=== PATIENT | female | born 1970 | race American Indian/Alaskan Native ===

== ENCOUNTER 2019-03-29 19:20 | Emergency (ER) | payer MEDICAID ==
[2019-03-29] MEDS ORDERED: HYDROmorphone 1 MG/1 ML INJ ONE (20:04)
--- NOTE | 2019-03-29 20:05 | Emergency Department Report ---
Upper Extremity - HPI Chief Complaint: Extremity Injury, Upper Stated Complaint: WRIST PAIN Time Seen by Provider: 03/29/19 20:00 Upper Extremity: Left Wrist Occurred When: Today Mechanism: Fall Severity: severe Symptoms: Yes Pain with Movement, Yes Deformity, Yes Limited Range of Movement, Yes Swelling, No Numbness, No Weakness, No Bruising/Ecchymosis, No Laceration or Abrasion Other History: Patient is a 49-year-old female that presents emergency room with complaints of left wrist pain. Patient states she fell walking and tried to brace her fall and fell with an outstretched hand onto the ground. Patient states her pain in her left wrist is a 10 out of 10. Patient states it is worse with movement better with rest. Patient states that EMS placed a Bryan bandage on there. Patient states that her wrist is deformed. Patient states there is swelling to the area. Patient states the pain is better with rest and worse with movement and palpation. ED Review of Systems ROS: Stated complaint: WRIST PAIN Other details as noted in HPI Constitutional: denies: chills, fever Eyes: denies: eye pain, eye discharge, vision change ENT: denies: ear pain, throat pain Respiratory: denies: cough, shortness of breath, wheezing Cardiovascular: denies: chest pain, palpitations Endocrine: no symptoms reported Gastrointestinal: denies: abdominal pain, nausea, diarrhea Genitourinary: denies: urgency, dysuria, discharge Musculoskeletal: denies: back pain, joint swelling, arthralgia Skin: denies: rash, lesions Neurological: denies: headache, weakness, paresthesias Psychiatric: denies: anxiety, depression Hematological/Lymphatic: denies: easy bleeding, easy bruising ED Past Medical Hx - Past Medical History Previous Medical History?: No - Surgical History Past Surgical History?: No - Family History Family history: no significant - Social History Smoking Status: Current Every Day Smoker Substance Use Type: None - Medications Home Medications: Home Medications Medication Instructions Recorded Confirmed Last Taken Type HYDROcodone/APAP 7.5-325 [[place] 1 each PO Q6HR PRN #12 tablet 03/29/19 Unknown Rx 7.5/325] Upper Extremity Exam - Exam General: Vital signs noted. No distress. Alert and acting appropriately. The patient appeared well nourished and normally developed. Vital signs as documented. Head exam is unremarkable. No scleral icterus or corneal arcus noted. Neck is without jugular venous distension, thyromegaly, or carotid bruits. Carotid upstrokes are brisk bilaterally. Lungs are clear to auscultation and percussion. Cardiac exam reveals the Rhythm is regular. First and second heart sounds nor mal. No murmurs, rubs or gallops. Abdominal exam reveals normal bowel sounds, no masses, no organomegaly and no aortic enlargement. Head and Torso: No HEENT Abnormality, No Neck Tenderness, No Chest/Lungs Abnormality, No Abdominal Tenderness, No Back Tenderness Shoulder Exam: Yes Normal Range of Motion in Shoulder, No Shoulder Tenderness, No Clavicle Tenderness, No Shoulder Deformity, No AC Joint Tenderness Arm Exam: No Arm/Humerus Tenderness, No Arm Deformity Elbow: No Elbow Tenderness, No Normal Range of Motion in Elbow, No Elbow Deformity Forearm: No Forearm Tenderness, No Forearm Deformity, No Pain with Pronation, No Pain with Supination Wrist: Yes Wrist Tenderness, Yes Wrist Deformity, No Normal ROM in Wrist, No Pain with Axial Thumb Compression Hand: Yes Normal ROM in Digit(s), No Hand Tenderness, No Hand Deformity, No Digit Tenderness, No Digit(s) Deformity, No Tendon Dysfunction CMS Exam: No Broken Skin, No Normal Distal Pulses, No Normal Capillary Refill, No Normal Distal Sensation ED Course - Reevaluation(s) Reevaluation #1: Discussed all results with patient. Discussed plan of care patient. Patient is stable for discharge. Patient was discharged home. Patient given discharge instructions. Patient voiced understanding of discharge instructions. Patient will have a splint placed to the left extremity. 03/29/19 21:15 Reevaluation #2: Splint placed and neurovascularly intact. See procedure note. 03/29/19 21:35 - Orthopedic Splinting/Casting Injury #1 Side: left Upper Extremity Injury Location: wrist Upper Extremity Immobilizer: sugartong splint Additional Comments: Patient had a splint placed to the left forearm and wrist. Neurovascularly intact. Cap refill Normal ED Medical Decision Making - Radiology Data Radiology results: report reviewed, image reviewed interpreted by me: Distal radial fracture of left wrist. LEFT WRIST 3 VIEWS PORTABLE 2000 INDICATION: Fall COMPARISON: None available. FINDINGS: Views are mildly underpenetrated. Impacted fracture of the distal radial metaphysis is noted. Lateral view is obliqued but no definite angulation is seen. There is mild dorsal and lateral displacement. No dislocation is obvious. Radiocarpal moderate arthritic changes are seen. A ovoid bony density is seen near the tip of the ulnar styloid but appears corticated and may be an old fracture fragment. Carpal arthritic changes are noted. - Medical Decision Making Patient is a 49-year-old female that presents emergency room with complaints of left wrist pain. Patient had x-rays done and shows a radial fracture. Patient was placed in a sugar tong EMS blade. Patient tolerated splinting well. Patient referred to a orthopedist for follow-up care. Patient given pain medications in the ER. Patient also discharged home with pain medications. - Differential Diagnosis fracture, sprain, contusion, strain, wrist pain, forearm pain Critical care attestation.: If time is entered above; I have spent that time in minutes in the direct care of this critically ill patient, excluding procedure time. ED Disposition Clinical Impression: Wrist pain, left Radial head fracture, closed Qualifiers: Encounter type: initial encounter Fracture alignment: nondisplaced Laterality: left Qualified Code(s): S52.125A - Nondisplaced fracture of head of left radius, initial encounter for closed fracture Disposition: - TO HOME OR SELFCARE Is pt being admited?: No Does the pt Need Aspirin: No Condition: Stable Instructions: Wrist Fracture in Adults (ED) Additional Instructions: Patient to follow up with primary care in 2-3 days. Patient to follow-up with orthopedist in 2-3 days. Patient to return to ER if condition worsens, changes or new symptoms arise. Patient to take Tylenol or ibuprofen when necessary for pain. Patient to rest. Patient to elevate limb. Patient to keep splint on until cleared by orthopedist. Prescriptions: HYDROcodone/APAP 7.5-325 [[place] 7.5/325] 1 each PO Q6HR PRN #12 tablet PRN Reason: Pain Referrals: PRIMARY MD BARBI [Primary Care Provider] - 2-3 Days BECK CUEVA MD [Staff Physician] - 2-3 Days Time of Disposition: 21:23
[2019-03-29] MEDS ORDERED: HYDROmorphone 1 MG/1 ML INJ IV ONE ×2 (20:10→21:22)
--- NOTE | 2019-03-29 21:06 | XRay Report ---
LEFT FOREARM 2 VIEWS PORTABLE 2005 INDICATION: Fall COMPARISON: None available. FINDINGS: Forearm is pronated. Views are mildly underpenetrated. Distal radial fracture is seen as described below. No proximal fractures or dislocations are noted. LEFT WRIST 3 VIEWS PORTABLE 2000 INDICATION: Fall COMPARISON: None available. FINDINGS: Views are mildly underpenetrated. Impacted fracture of the distal radial metaphysis is note d. Lateral view is obliqued but no definite angulation is seen. There is mild dorsal and lateral disp lacement. No dislocation is obvious. Radiocarpal moderate arthritic changes are seen. A ovoid bony de nsity is seen near the tip of the ulnar styloid but appears corticated and may be an old fracture fra gment. Carpal arthritic changes are noted. Signer Name: Fidel Harry MD Signed: 03/29/2019 9:02 PM Workstation Name: [id number]
== END 2019-03-29 22:50 | disposition home or self-care (01) ==
LOC: ED 19:20
DX: S52.125A Nondisplaced fracture of head of left radius, initial encounter for closed fracture (principal); M25.532 Pain in left wrist; F17.200 Nicotine dependence, unspecified, uncomplicated; Z79.899 Other long term (current) drug therapy; W19.XXXA Unspecified fall, initial encounter; Y93.89 Activity, other specified; Y92.89 Other specified places as the place of occurrence of the external cause; Y99.8 Other external cause status
CPT/HCPCS: 29125; 73090; 73110; 96374; 96376; 99284; J1170

== ENCOUNTER 2019-05-15 09:54 | Outpatient (CLI) | payer MEDICAID ==
--- NOTE | 2019-05-15 12:04 | XRay Report ---
LEFT WRIST 3 VIEWS INDICATION / CLINICAL INFORMATION: S62.92XA UNSPECIFIED FRACTURE OF LEFT WRIST AND HAND INITIAL ENCO COMPARISON: 03/29/2019. FINDINGS: BONES / JOINT(S): Previously seen impacted fracture at the distal radial metaphysis remains. There is mild interval callus formation, but significant residual lucency. Avulsion remains at the ulnar styl oid process. 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 SOFT TISSUES: Mild diffuse soft tissue swelling. ADDITIONAL FINDINGS: None. Signer Name: Joe Rome MD Signed: 05/15/2019 12:00 PM Workstation Name: [id number]
== END 2019-05-15 09:55 | disposition home or self-care (01) ==
LOC: XRAY 09:54
PROVIDERS: ATTEND Orthopaedic Surgery
DX: S62.102D Fracture of unspecified carpal bone, left wrist, subsequent encounter for fracture with routine healing (principal); X58.XXXD Exposure to other specified factors, subsequent encounter; M25.742 Osteophyte, left hand; M79.89 Other specified soft tissue disorders